=== PATIENT | female | born 1985 | race Caucasian/White ===

== ENCOUNTER 2019-03-27 15:42 | Outpatient (CLI) | payer BC, SELFPAY ==
[2019-03-27 17:03] LABS: Abs Immature Grans 0.03 k/cumm (0.0-0.09); Absolute Basophil Count 0.03 k/cumm (0.0-0.2); Absolute Eosinophil Count 0.03 k/cumm (0.0-0.7); Absolute Lymphocyte Count 1.03 k/cumm (1.2-3.4); Absolute Monocyte Count 0.52 k/cumm (0.11-0.7); Basophils % 0.3; Eosinophils % 0.3; HCT 39.6 % (36.0-46.0); HGB 13.3 g/dL (12.0-15.5); Immature Grans % 0.3; Lymphocytes % 9.1; Mean Corp. HGB Concentration 33.6 g/dL (32.0-36.0); Mean Corpuscular Hemoglobin 30.1 pg (27.0-33.0); Mean Corpuscular Volume 89.6 fL (80-95); Mean Platelet Volume 10.1 fL (8.0-11.0); Monocytes % 4.6; Neutrophils % 85.4; Platelet Count 266 x1000/uL (130-400); RBC 4.42 m/cumm (4.00-5.20); RBC Distribution Width 12.9 % (11.7-14.6); White Blood Cell Count 11.31 k/cumm (4.4-10.8)
[2019-03-27 17:07] LABS: Absolute Neutrophil Count 9.66 k/cumm (1.2-6.7)
[2019-03-27 18:33] LABS: TSH (W/Ref FT4) 1.41 uIU/mL (0.36-3.74)
[2019-03-29 11:34] LABS: Hepatitis B Surface Ag Negative (NEGAT)
[2019-03-29 11:48] LABS: Rubella IgG Ab (UVM) Positive; Syphilis Serology (RPR) Negative (Negative); Varicella IgG Antibody Positive
[2019-03-29 12:34] LABS: HIV-1/2 Ag & Ab Screen Negative (NEGAT)
[2019-03-29 12:45] LABS: Hepatitis C Ab w Rflx HCV PCR Negative (NEGAT)
== END 2019-03-27 16:02 ==
PROVIDERS: PCP Family Medicine; Visit Provider Obstetrics & Gynecology
DX: Z34.91 Encounter for supervision of normal pregnancy, unspecified, first trimester (principal); Z11.4 Encounter for screening for human immunodeficiency virus [HIV]; Z11.59 Encounter for screening for other viral diseases
CPT/HCPCS: 36415; 80055; 86787; 86803; 86850; 86900; 86901; 87340; 87389; 84443; 84702; 86592; 86762

== ENCOUNTER 2019-03-29 12:01 | Outpatient (CLI) | payer BC, SELFPAY ==
--- NOTE | 2019-03-29 13:45 | DI.US_ITS ---
EXAM: US OB 1ST TRIMESTER CLINICAL HISTORY: Rule out partial mole. Abnormal appearnace of placenta, Z34.90 TECHNIQUE: OB ultrasound is performed utilizing 1st trimester protocol. COMPARISON: US OB 1ST TRIMESTER from 03/29/2019 FINDINGS: There is a viable intrauterine gestation with crown-rump length measurements consistent with gestatio nal age of 9 weeks 0 days and EDC of 11/01/2019. There is an approximately 21 x 12 x 20 millimeter in diameter echogenic fairly well-circumscribed mas s, which appears to arise from the trophoblast. IMPRESSION: The findings, in conjunction with the patient's reported elevated beta HCG levels, are suggestive of a partial molar . cardiac activity is observed at a rate of 187 BPM. Ovaries grossly u nremarkable in appearance. Results were discussed with Dr. Julian Méndez.
== END 2019-03-29 12:21 ==
PROVIDERS: PCP Family Medicine; Visit Provider Obstetrics & Gynecology
DX: O02.81 Inappropriate change in quantitative human chorionic gonadotropin (hCG) in early pregnancy; O01.9 Hydatidiform mole, unspecified
CPT/HCPCS: 36415; 76801; 84702

== ENCOUNTER 2019-06-04 17:38 | Outpatient (REF) | payer BC, SELFPAY ==
[2019-06-04 18:04] LABS: *AMPHETAMINES SCREEN URINE Negative (Negative); *BARBITURATES SCREEN URINE Negative (Negative); *BENZODIAZEPINES SCREEN URINE Negative (Negative); Cannabinoids THC Negative (Negative); Cocaine Screen,Urine Negative (Negative); METHADONE URINE SCREEN Negative (Negative); OPIATES URINE SCREEN Negative (Negative)
[2019-06-04 18:25] LABS: Tricyclic Antidepressants Negative (Negative)
[2019-06-09 11:39] LABS: Buprenorphine Negative; Norbuprenorphine Negative
== END 2019-06-04 17:58 ==
LOC: LBN 17:38
PROVIDERS: PCP Family Medicine; Visit Provider Advanced Practice Midwife
DX: Z34.91 Encounter for supervision of normal pregnancy, unspecified, first trimester (principal)
CPT/HCPCS: 80307; 84702; 87086

== ENCOUNTER 2019-10-08 18:52 | Outpatient (REF) | payer BC, SELFPAY ==
[2019-10-08 21:25] LABS: *AMPHETAMINES SCREEN URINE Negative (Negative); *BARBITURATES SCREEN URINE Negative (Negative); *BENZODIAZEPINES SCREEN URINE Negative (Negative); Cannabinoids THC Negative (Negative); Cocaine Screen,Urine Negative (Negative); METHADONE URINE SCREEN Negative (Negative); OPIATES URINE SCREEN Negative (Negative)
[2019-10-08 21:27] LABS: Tricyclic Antidepressants Negative (Negative)
[2019-10-12 00:41] LABS: Buprenorphine Negative; Norbuprenorphine Negative
== END 2019-10-08 19:12 ==
LOC: LBN 18:52
PROVIDERS: PCP Family Medicine; Visit Provider Obstetrics & Gynecology Gynecology
DX: Z34.93 Encounter for supervision of normal pregnancy, unspecified, third trimester (principal); Z36.85 Encounter for antenatal screening for Streptococcus B
CPT/HCPCS: 80307; 87081

== ENCOUNTER 2019-10-31 08:08 | Outpatient (CLI) | payer BC, SELFPAY ==
--- NOTE | 2019-10-31 09:30 | DI.US_ITS ---
EXAM: US OB HERBER WEIGHT CLINICAL HISTORY: s>d,O26.849,UTERINE SIZE DISCREPANCY. COMPARISON: US US OB 1ST TRIMESTER from 03/29/2019 TECHNIQUE: Transabdominal obstetrical ultrasound performed. FINDINGS: Sonographic images demonstrate a single intrauterine gestation in cephalic position. The placenta is fundal and posterior. The previously noted echogenic mass is not documented. Sonographically assessed gestational age: 41 weeks 0 days Estimated date of delivery based on this ultrasound is: 24 Oct 2019 clinical age: 39 weeks 6 days Estimated date of delivery based upon 1st ultrasound: 01 Nov 2019 heart rate motion is Dopplered at: 153 bpm. BPD 100 millimeters, 41 weeks 2 days HC: 365 millimeters, above the normal range AC: 382 millimeters, above the normal range FL: 79 millimeters, 40 weeks 4 days EFW 4548 grams, 98th percentile Amniotic fluid index: 20.7 cm. Largest pocket of fluid measures 8.5 cm. Amount of fluid is at the hi gh normal range. IMPRESSION: size and weight and EHRBER are at the high end of the normal range or slightly above.. DATA REPOSITORY:
== END 2019-10-31 08:28 ==
PROVIDERS: PCP Family Medicine; Visit Provider Advanced Practice Midwife
DX: O26.843 Uterine size-date discrepancy, third trimester (principal); Z3A.41 41 weeks gestation of pregnancy
CPT/HCPCS: 76816

== ENCOUNTER 2021-08-07 03:52 | Outpatient (CLI) | payer OTHER, SELFPAY ==
[2021-08-07 10:25] LABS: Kit/Specimen SENT
[2021-08-07 10:33] LABS: Abs Immature Grans 0.04 10^3/uL (0.0-0.06); Absolute Basophil Count 0.04 10^3/uL (0.0-0.2); Absolute Eosinophil Count 0.08 10^3/uL (0.0-0.7); Absolute Lymphocyte Count 1.19 10^3/uL (1.2-3.4); Absolute Monocyte Count 0.42 10^3/uL (0.1-0.8); Absolute Neutrophil Count 6.91 10^3/uL (1.2-6.7); Basophils % 0.5; Eosinophils % 0.9; HCT 36.1 % (36.0-46.0); HGB 11.8 g/dL (11.2-15.7); Immature Grans % 0.5; Lymphocytes % 13.7; MCH 29.3 pg (27.0-33.0); MCHC 32.7 % (32.0-36.0); MCV 89.6 fL (80-95); MPV 10.4 fL (8.0-11.0); Monocytes % 4.8; Neutrophils % 79.6; Nucleated RBC 0 %; Platelet Count 237 10^3/uL (130-400); RBC 4.03 10^6/uL (3.93-5.22); RDW 12.6 % (11.7-14.6); RDW-SD 41.1 fL; WBC 8.68 10^3/uL (4.4-10.8)
[2021-08-07 10:42] LABS: Glucose,1 Hr (Glucola) 95 mg/dL (80-140)
[2021-08-07 11:35] LABS: TSH (W/Ref FT4) 1.17 uIU/mL (0.36-3.74)
[2021-08-09 14:00] LABS: Rubella IgG Ab (UVM) Positive (See Note); Varicella IgG Antibody Positive (See Note)
[2021-08-10 10:02] LABS: Hepatitis C Ab w Rflx HCV PCR Negative (Negative)
[2021-08-10 11:10] LABS: Hepatitis B Surface Ag Negative (Negative)
[2021-08-10 11:38] LABS: HIV-1/2 Ag & Ab Screen Negative (Negative)
[2021-08-10 15:09] LABS: Syphilis IgG w/Reflex Nonreactive (Nonreactive)
== END 2021-08-07 03:53 | disposition home or self-care (01) ==
LOC: LBO 03:52
PROVIDERS: Advanced Practice Midwife; PCP Family Medicine; Visit Provider Advanced Practice Midwife
DX: O09.512 Supervision of elderly primigravida, second trimester
CPT/HCPCS: 36415; 82950; 86787; 86803; 86850; 86900; 86901; 87340; 87389; 84443; 85025; 86762; 86780

== ENCOUNTER 2021-08-07 10:20 | Outpatient (REF) | payer OTHER, SELFPAY ==
--- NOTE | 2021-08-07 09:00 | PAPFT_PTH ---
PATIENT: Marilyn Beebe LOC: [facility] U#:[id number] AGE/SX: 36/F ROOM: RE08/07/[address]: Winnie Ortiz : 1985 BED: DIS: 08/07/2021 SPEC #: [id number] RECD: 08/07/21 12:48 STATUS: MINA REAnitha #: [id number] VICKIE: 08/07/21 09:[address]: Winnie Ortiz DEPT: [facility] Cytology RECD BY: Jennifer Taylor ENTERED: 08/07/21 12:48 SP TYPE: PAPFT OTHR DR: Michelle Jasso Tissues: 1 - CX/ENDOCX FOR PAP SMEARS Procedures: PAP THIN PREP/UVM Screening HPV DNA PROBE Comments: [id number]
[2021-08-07 11:52] LABS: *AMPHETAMINES SCREEN URINE Negative (Negative); *BARBITURATES SCREEN URINE Negative (Negative); *BENZODIAZEPINES SCREEN URINE Negative (Negative); Cannabinoids THC Negative (Negative); Cocaine Screen,Urine Negative (Negative); METHADONE URINE SCREEN Negative (Negative); OPIATES URINE SCREEN Negative (Negative)
[2021-08-07 11:53] LABS: Tricyclic Antidepressants Negative (Negative)
[2021-08-10 14:17] LABS: Chlamydia Result Negative (Negative); GC Result Negative (Negative)
[2021-08-13 10:31] LABS: Buprenorphine Negative ng/mL (Cutoff: 5.0); Norbuprenorphine Negative ng/mL (Cutoff: 2.5)
== END 2021-08-07 10:21 | disposition home or self-care (01) ==
LOC: LBN 10:20
PROVIDERS: PCP Family Medicine; Visit Provider Advanced Practice Midwife
DX: Z34.91 Encounter for supervision of normal pregnancy, unspecified, first trimester (principal); Z12.4 Encounter for screening for malignant neoplasm of cervix; Z11.51 Encounter for screening for human papillomavirus (HPV)
CPT/HCPCS: 80307; 87491; 87591; 88142; 87086; 87480; 87510; 87624; 87660

== ENCOUNTER 2021-09-07 04:11 | Outpatient (CLI) | payer OTHER, SELFPAY ==
[2021-09-08 15:59] LABS: AFP 29.6 ng/mL; Cigarette smoking status non-Smoker; GA used in risk estimate Dates estimate; IVF Pregnancy No; Initial or repeat testing Initial testing; Insulin dependent diabetes No; Maternal Weight 232 lbs; Number of Fetuses 1; Physician Phone Number 802-748-7300; Prev Pregnancy w/NTD No; RECOMMENDED FOLLOW UP None.; Results Summary Normal risk
== END 2021-09-07 04:12 | disposition home or self-care (01) ==
LOC: LBO 04:11
PROVIDERS: PCP Family Medicine; Visit Provider Advanced Practice Midwife
DX: O09.522 Supervision of elderly multigravida, second trimester (principal); Z3A.17 17 weeks gestation of pregnancy; Z36.89 Encounter for other specified antenatal screening
CPT/HCPCS: 36415; 82105

== ENCOUNTER 2021-11-12 02:23 | Outpatient (CLI) | payer OTHER, SELFPAY ==
[2021-11-12 09:27] LABS: HCT 32.2 % (36.0-46.0); HGB 10.8 g/dL (11.2-15.7); MCH 30.5 pg (27.0-33.0); MCHC 33.5 % (32.0-36.0); MCV 91 fL (80-95); MPV 9.9 fL (8.0-11.0); Platelet Count 212 10^3/uL (130-400); RBC 3.54 10^6/uL (3.93-5.22); RDW 13.4 % (11.7-14.6); WBC 10.86 10^3/uL (4.4-10.8)
[2021-11-12 09:49] LABS: Glucose,1 Hr (Glucola) 146 mg/dL (80-140)
== END 2021-11-12 02:24 | disposition home or self-care (01) ==
LOC: LBO 02:23
PROVIDERS: PCP Family Medicine; Visit Provider Advanced Practice Midwife
DX: Z34.92 Encounter for supervision of normal pregnancy, unspecified, second trimester (principal); Z3A.26 26 weeks gestation of pregnancy
CPT/HCPCS: 36415; 82950; 85027